=== PATIENT | female | born 1975 | race Caucasian/White ===

== ENCOUNTER → 2019-10-28 | Outpatient (CLI) | payer BC, OTHER ==
--- NOTE | 2019-10-28 15:45 | KCIC ---
Bilateral digital screening mammograms: Reason for examination: Routine baseline screening. Interpretation was made with the benefit of CAD. The skin and nipples show no abnormalities. No abnormal axillary lymph nodes are seen. The breast parenchyma shows scattered fibroglandular density. (Breast density: Category B.) There is a nodular parenchymal asymmetry posterior medially in the left breast on cc view measuring approximately 8.7 mm in size. Recommend further evaluation with coned compression views in CC and true lateral projections and left breast ultrasound. There are no other dominant masses, suspicious calcifications or architectural distortions. Impression: Small nodular density posterior medially in the left breast seen. Recommend further evaluation with coned compression views and ultrasound. BI-RADS Category 0: Incomplete. Needs additional imaging evaluation "Our facility is accredited by the [employer] Mammography [employer]." This patient's information has been entered into a reminder system for the patient to be notified with the results of her examination and a target date for the next mammogram. Electronically signed by: Roz Juárez MD (10/28/2019 3:42 PM) [id number]
== END | disposition home or self-care (01) ==
LOC: KCIC MAMMO 14:33
PROVIDERS: ATTEND Preventive Medicine Public Health & General Preventive Medicine
DX: Z12.31 Encounter for screening mammogram for malignant neoplasm of breast (principal); N64.89 Other specified disorders of breast
CPT/HCPCS: 77067

== ENCOUNTER → 2019-11-12 | Outpatient (CLI) | payer BC, OTHER ==
--- NOTE | 2019-11-12 15:57 | KCIC ---
Left breast diagnostic digital mammograms: Reason for examination: Nodular parenchymal density on screening mammogram. Comparison is made to mammographic exam dated 10/28/2019. Coned compression cc view and true lateral view of the left breast were obtained. There continues to be a small parenchymal asymmetry posterior medially in the left breast on cc view with some subtle asymmetry suggested at the posterior central position of the left breast on MLO view. This will be further evaluated with ultrasound. IMPRESSION: Asymmetry appears to persist at the 9:00 position posteriorly in the left breast. Ultrasound to follow. BI-RADS Category 0: Incomplete. Needs additional imaging evaluation. Left breast ultrasound: Ultrasound examination was performed of the medial left breast with special attention to the area of mammographic concern. There is a small vascular structure at the 9:00 position. No other discrete cystic or solid nodules are seen. The area of mammographic concern probably reflects some focal asymmetric fibroglandular tissue. IMPRESSION: No suspicious abnormality seen in the left breast sonographically. The area of mammographic concern probably represents some asymmetric fibroglandular tissue. Recommend 6 month follow-up with left breast mammograms and ultrasound. BI-RADS Category 3: Probably Benign. "Our facility is accredited by the [employer]ammography [employer]." This patient's information has been entered into a reminder system for the patient to be notified with the results of her examination and a target date for the next mammogram. Electronically signed by: Roz Juárez MD (11/12/2019 3:55 PM) [email or web address]
== END | disposition home or self-care (01) ==
LOC: KCIC MAMMO 09:05
PROVIDERS: ATTEND Preventive Medicine Public Health & General Preventive Medicine
DX: R92.2 Inconclusive mammogram (principal)
CPT/HCPCS: 76641; 77065

== ENCOUNTER → 2020-05-31 | Outpatient (CLI) | payer BC, OTHER ==
--- NOTE | 2020-05-31 13:10 | RAD ---
EXAM: Left breast diagnostic mammogram; left breast sonogram. HISTORY: 45-year-old female presents for follow-up evaluation of asymmetry within the left breast dem onstrated on mammogram study performed 10/28/2019 and 11/12/2019. TECHNIQUE: Full-field digital craniocaudal and mediolateral oblique views and spot compression and ro lled cranial caudal views of the left breast are obtained for evaluation. Computer aided detection wa s applied. Sonographic imaging of the left breast targeted to the site of mammographic asymmetry was also performed. COMPARISON: Sonogram and mammogram dated 11/12/2019 and mammogram dated 10/28/2019. BREAST PARENCHYMAL DENSITY: Level B - Scattered fibroglandular densities. FINDINGS: There has been no change in focal asymmetry within the 9:00 position of the left breast. Th is is less conspicuous and appears to change configuration on a rolled craniocaudal images. There are additional areas of asymmetry which are also stable in appearance. There is no suspicious calcificat ion or architectural distortion. Sonographic imaging of the left breast demonstrates no suspicious finding. IMPRESSION: 1. Stable focal asymmetry within the 9:00 position of the left breast at mid depth. The stability and absence of a sonographic correlate favors an island of benign fibroglandular tissue. This appears to change configuration between projections, also favoring benignity. 2. BI-RADS Category 3: Probably benign finding(s). Short term follow up with a diagnostic mammogram in 6 months is recommended to confirm a year of stability and correspond with the previously establis hed mammography interval. if your mammogram demonstrates that you have dense breast tissue, which could hide abnormalities, and if you have other risk factors for breast cancer that have been identified, you might benefit from s upplemental screening tests that may be suggested by your ordering physician. Dense breast tissue, i n and of itself, is a relatively common condition. This information is not provided to cause undue c oncern, but rather to raise your awareness and to promote discussion with your physician regarding th e presence of other risk factors, in addition to dense breast tissue. A report of your mammography re sults will be sent to you and your physician. You should contact your physician if you have any ques tions or concerns regarding this report. Mammography is a sensitive method for finding small breast cancers, but it does not detect them all a nd is not a substitute for careful clinical examination. A negative mammogram does not negate a clin ically suspicious finding and should not result in delay in biopsying a clinically suspicious abnorma lity. PQRS compliance statement - Patient information was entered into a reminder system with a target due date for the next mammogram. "Our facility is accredited by the [employer] Mammography [employer]." Electronically signed by: Lali Patterson MD (05/31/2020 1:08 PM) [id number]
== END ==
LOC: MAMMO 12:08
PROVIDERS: ATTEND Preventive Medicine Public Health & General Preventive Medicine
DX: R92.8 Other abnormal and inconclusive findings on diagnostic imaging of breast (principal)
CPT/HCPCS: 76641; 77065

== ENCOUNTER → 2021-04-18 | Outpatient (CLI) | payer BC ==
--- NOTE | 2021-04-18 16:31 | RAD ---
EXAMINATION: MG DIGITAL BILAT DIAGNOSTIC MAMMO WITH DOLORES, US BREAST LT History: Six-month follow-up left breast asymmetry. Comparison: Left breast ultrasound and mammogram 05/31/2020 and 05/14/2019. Bilateral screening mammogr ams 10/28/2019. Technique: Bilateral digital diagnostic mammogram views were obtained. CAD was utilized. 3-D tomosyn thesis images were acquired. Subsequent left breast ultrasound was performed. Findings: Breast Tissue Density B : There are scattered areas of fibroglandular density. The asymmetry at 9:00 in the left breast at posterior depth persists. No suspicious calcifications or architectural distortion. There is a 6 mm asymmetry in the outer right breast 4 cm from the nipple on CC view. No definite desmond elation on MLO view. This was not seen until the mammogram is being read after the patient had left. Ultrasound of the left breast at 9:00 demonstrates normal fibroglandular tissue. No sonographic abnor mality to correlate with the mammographic findings. No axillary lymphadenopathy. IMPRESSION: 1. Stable probably benign left breast asymmetry at 9:00 posterior depth without sonographic correlati on. Recommend 6 month follow-up mammogram and ultrasound of the left breast. 2. There is a 6 mm asymmetry in the outer right breast 4 cm from the nipple that needs further evalua tion with spot compression views and possible ultrasound if indicated. The asymmetry was not seen unt il the mammogram was being read after the patient had left. She will be brought back to obtain the ad ditional mammographic views at no additional charge. BI-RADS Category 0: Incomplete: Need additional imaging evaluation. Dr. Johnson called the patient and discussed the need for additional images of the outer right breas t at 4:20 PM on 04/18/2021. The patient understands and will return later in the week to obtain images . Electronically signed by: Laney Johnson MD (04/18/2021 4:28 PM) [id number]
== END ==
LOC: MAMMO 07:53
PROVIDERS: ATTEND Preventive Medicine Public Health & General Preventive Medicine
DX: R92.8 Other abnormal and inconclusive findings on diagnostic imaging of breast (principal)
CPT/HCPCS: 76641; 77066; G0279; 77062

== ENCOUNTER → 2021-04-27 | Outpatient (CLI) | payer BC ==
--- NOTE | 2021-04-27 15:56 | RAD ---
EXAM: Right right breast ultrasound Comparison: Diagnostic bilateral mammogram 04/18/2021 The patient returned on 04/27/2021 to complete spot compression of an asymmetry in the outer right br east anterior depth seen on CC view of the diagnostic mammogram 04/18/2021. The asymmetry changes conf iguration but persists on CC spot compression view. This likely localizes to around 8 and 9:00 on lisa osynthesis. Subsequent right breast ultrasound was performed in the area of concern in the outer right breast. Th is demonstrates normal fibroglandular tissue. There is no cyst or mass to correspond with the questio mikaela abnormality. No abnormal axillary lymph nodes. IMPRESSION: Probably benign bilateral breast asymmetries without sonographic correlation. Recommend 6 month follow-up bilateral diagnostic mammogram and possible ultrasound if needed. BI-RADS category 3: Probably benign. RECOMMENDATION: Bilateral diagnostic mammogram and possible ultrasound in 6 months. Electronically signed by: Laney Johnson MD (04/27/2021 3:54 PM) [id number]
== END ==
LOC: MAMMO 13:34
PROVIDERS: ATTEND Preventive Medicine Public Health & General Preventive Medicine
DX: R92.8 Other abnormal and inconclusive findings on diagnostic imaging of breast (principal)
CPT/HCPCS: 76641